=== PATIENT | male | born 1955 | race African-American/Black ===

== ENCOUNTER 2016-11-06 05:48 | Day surgery (SDC) ==
[2016-11-06] MEDS ORDERED: PEPCID ONE (06:06)
[2016-11-06] MEDS ORDERED: REGLAN ONE (06:06)
[2016-11-06] MEDS ORDERED: LR 1,000 ML ONE (06:06)
[2016-11-06] MEDS ORDERED: KEFZOL 1 GM/D5W 50 ML ONE (06:06)
[2016-11-06] MEDS ORDERED: MARCAINE 0.25% PF/EPI 1:200,000 ONE (07:52)
[2016-11-06] MEDS ORDERED: FENTANYL ONE (08:44)
[2016-11-06] MEDS ORDERED: DIPRIVAN 1% ONE (08:44)
[2016-11-06] MEDS ORDERED: DECADRON ONE (08:47)
[2016-11-06] MEDS ORDERED: ZOFRAN ONE (08:47)
[2016-11-06] MEDS ORDERED: OFIRMEV 1000 MG/ISOTONIC SOLN 100 ML ONE (08:47)
[2016-11-06] MEDS ORDERED: XYLOCAINE-MPF 2% ONE (08:47)
[2016-11-06] MEDS ORDERED: EPHEDRINE ONE (08:47)
[2016-11-06] MEDS ORDERED: ROBINUL ONE (08:47)
[2016-11-06] MEDS ORDERED: NORCO-10 ONE (08:56)
[2016-11-06] MEDS ORDERED: ZOFRAN IV PRN (09:15)
[2016-11-06] MEDS ORDERED: ULTRAM PO PRN (09:15)
[2016-11-06 09:40] VITALS: BP 127/81
--- NOTE | 2016-11-06 11:10 | OPERATIVE NOTE ---
PROCEDURE DATE: 11/06/2016 PREOPERATIVE DIAGNOSIS: Right chest wall lipoma. POSTOPERATIVE DIAGNOSIS: Right chest wall epidermal cyst. PROCEDURE PERFORMED: Excision of right chest wall epidermal cyst. SURGEON: Kendrick Coulter MD ANESTHESIA: General. ESTIMATED BLOOD LOSS: 5 mL. COMPLICATIONS: None apparent. SPECIMENS: Cyst. FINDINGS: A 4.5 x 2.5 cm epidermal cyst. COMPLICATIONS: None apparent. TECHNIQUE: The patient was brought to the operating room and placed supine on the table. General LMA anesthesia was induced. He was prepped and draped in the usual sterile fashion. Marcaine 0.25% with epinephrine was used to anesthetize the skin incisions. An elliptical incision was made around the palpable mass over the right lateral chest. This was carried down through the dermis sharply with a 15 blade. As I continued dissection through the subcutaneous fat around the mass, it became apparent that this was an epidermal cyst. There was a small amount of fluid that leaked out. It did not appear to be infected. It was completely excised from the underlying subcutaneous fat with the knife. Cautery was used for hemostasis. The subcutaneous tissue was reapproximated with interrupted 3-0 Polysorb. The skin was closed with a running 4-0 subcuticular Monocryl and Steri-Strips. There were no apparent complications. He was awakened in stable condition and transferred to the recovery room.
== END 2016-11-06 09:45 | disposition home or self-care (01) ==
LOC: OPS 05:48
PROVIDERS: ATTEND Surgery
DX: L72.0 Epidermal cyst (principal); I10 Essential (primary) hypertension
CPT/HCPCS: 88304; J0131; J0690; J1100; J2405; J3010; J7120

== ENCOUNTER 2018-11-19 00:12 | Inpatient (IN) ==
[2018-11-19] MEDS ORDERED: MORPHINE IV ONE (01:07)
[2018-11-19 01:29] LABS: BASO# 0.01 X1000 (0.0-0.2); BASO% 0.1 % (0.0-0.8); EOS# 0.16 X1000 (0.0-0.7); EOS% 2.3 % (0.0-10.0); HEMATOCRIT 41.6 % (42.0-52.0); HEMOGLOBIN 13.4 g/dL (14.0-18.0); LYMPH# 2.31 X1000 (1.2-3.4); LYMPH% 32.7 % (20.5-51.1); MCH 27.9 PG (27-31); MCHC 32.2 g/dL (33-37); MCV 86.7 FL (81-99); MONO# 0.64 X1000 (0.11-0.59); MONO% 9.1 % (1.7-9.3); NEUT# 3.95 X1000 (1.4-6.5); NEUT% 55.8 % (42.2-75.2); PLT 251 X1000 (130-400); RDW 15.3 % (11.5-14.5); WBC 7.07 X1000 (4.8-10.8)
[2018-11-19 01:37] LABS: INR 0.95; PROTIME 13.5 Seconds (11.0-16.0)
[2018-11-19 01:38] LABS: PTT 28.6 Seconds (22.3-41.8)
[2018-11-19 02:01] LABS: ALB/GLOB RATIO 1.2; ALBUMIN 4.6 g/dL (3.5-5.0); CALCIUM 8.6 mg/dL (8.8-10.2); CREATININE 1.7 mg/dL (0.7-1.2); POTASSIUM 3.9 mmol/L (3.5-5.1); TOTAL BILIRUBIN 0.42 mg/dL (0.20-1.00); TOTAL PROTEIN 8.3 g/dL (6.3-8.3)
--- NOTE | 2018-11-19 05:33 | PROVIDER DOCUMENTATION ---
This chart was entered by Jason Lundberg Scribe, acting as scribe for Golden Sen MD. HPI-Chest Pain - General Stated Complaint: left side chest pain Time Seen by Provider: 11/19/18 00:55 Source: patient Allergies/Adverse Reactions: Patient Allergies Allergy/AdvReac Type Severity Reaction Status Date / Time tramadol Allergy Intermediate RASH Verified 10/18/18 07:34 levofloxacin [From Levaquin] AdvReac ITCHING Verified 10/18/18 07:34 Home Medications: Home Medication List Medication Instructions Recorded Confirmed Last Taken Type Amlodipine [Norvasc] 10 mg PO DAILY #0 tablet 07/26/16 11/19/18 10/18/18 Rx Aspirin 81 mg PO DAILY #0 chewtab 07/26/16 11/19/18 10/18/18 Rx Hydrocodone/APAP 10 mg/325 mg 1 each PO DAILY #0 tablet 07/26/16 11/19/18 10/18/18 Rx [Mcintyre-10] Cyclobenzaprine [Flexeril] 1 tab PO DAILY 10/18/18 11/19/18 10/18/18 History Cyclobenzaprine [Flexeril] 10 mg PO TID #20 tab 10/18/18 11/19/18 Unknown Rx Nitrofurantoin Monohyd/M-Cryst 100 mg PO BID #14 cap 10/18/18 11/19/18 Unknown Rx [Macrobid 100 mg Capsule] Omeprazole 1 tab PO DAILY 10/18/18 11/19/18 10/18/18 History - History of Present Illness-CP Nature of Presenting Problem: Pt is a 63 y/o F presents to the ED with chest pain that began around 5:30 pm and is constant. Pt reports he was diaphoretic with the pain. He reports a hx of a OR within a couple months ago with no stents at that time. Location: reports: substernal Chest Pain Radiation: reports: no radiation Quality of Pain: reports: aching Severity in ED: moderate Onset/Duration: this evening Timing: still present Context/Activities at Onset: reports: none Modifying Factors: improves with: nothing Associated Symptoms: reports: diaphoresis. denies: dizziness, nausea, shortness of breath, vomiting Nitro Today/Relief: no nitro taken today Aspirin Treatment Today: 325 mg x 1, provided by EMS Similar Symptoms Previously?: Yes Recently Seen Here or By Another Healthcare Provider: No Review of Systems - Adult - REVIEW OF SYSTEMS - ADULT Constitutional: denies: chills, fever Eyes: reports: no symptoms reported Ears, Nose, Mouth & Throat: reports: no symptoms reported Cardiovascular: reports: chest pain. denies: edema, palpitations Respiratory: denies: cough, shortness of breath Gastrointestinal: denies: abdominal pain, nausea, vomiting Genitourinary: reports: no symptoms reported Musculoskeletal: reports: no symptoms reported Integumentary: reports: no symptoms reported Neurological: reports: no symptoms reported Psychiatric: reports: no symptoms reported Endocrine: reports: no symptoms reported Hematologic/Lymphatic: reports: no symptoms reported Allergic/Immunologic: reports: no symptoms reported All Other Systems: Reviewed and Negative Past History - Adult - PAST MEDICAL HISTORY-ADULT Review of Records: reports: Old Records Reviewed, Nursing Assessment Review, Medications Reviewed Major Childhood Illnesses: reports: denies history Cardiovascular: reports: CAD, HTN, OR (X 3 , NO STINT OR CABG) Respiratory: reports: denies history Gastrointestinal: reports: GERD Obstetrical/Gynecological: reports: denies history Genitourinary: reports: denies history Musculoskeletal: reports: denies history Neurological: reports: denies history Endocrine/Immune: reports: denies history Other Conditions: reports: denies history - PRIOR SURGERIES/PROCEDURES Surgical/Procedure History: reports: none - PRIOR HOSPITALIZATIONS Prior Hospitalizations: reports: none - IMMUNIZATION STATUS Childhood Immunizations: See Nurse Assessment Flu Vaccine: See Nurse Assessment - FAMILY HISTORY Family History: reviewed, not pertinent - SOCIAL HISTORY Smoking: non-smoker Living Situation: family Physical Exam-General - PHYSICAL EXAM-ADULT Initial Vital Signs Reviewed: Yes - CONSTITUTIONAL General Appearance: appears well, alert, no apparent distress - EYES Eyes: PERRL/EOMI, pink conjunctivae - HEAD, EARS, NOSE, MOUTH & THROAT HENMT: moist mucous membranes, normal ENT inspection, pharynx normal - NECK Neck: non-tender, full range of motion, supple, normal inspection - RESPIRATORY Respiratory: lungs clear, normal breath sounds, no pleuratic chest pain, no respiratory distress, no accessory muscle use - CARDIOVASCULAR Cardiovascular: normal peripheral pulses, regular rate, rhythm - GASTROINTESTINAL (ABDOMEN) Abdominal Exam: normal bowel sounds, non tender, soft - MUSCULOSKELETAL Back Exam: normal inspection, no CVA tenderness, no vertebral tenderness Extremity: normal range of motion, non-tender, normal gait, normal inspection - SKIN Integumentary: normal color, normal turgor, warm/dry - NEUROLOGIC Neurologic: grossly normal, no motor/sensory deficits - PSYCHIATRIC Psych/Mental Status: normal mood/affect, normal thought content, normal thought process, oriented x 3 Progress - PLAN OF CARE/RESULTS Progress/Plan/Lab Results: Vital Signs - 8 hr 11/19/18 01:00 11/19/18 01:03 11/19/18 01:10 Temperature Pulse Rate 84 75 68 Respiratory Rate 17 21 10 L Blood Pressure 149/87 O2 Sat by Pulse Oximetry 95 95 11/19/18 01:16 11/19/18 01:20 11/19/18 01:30 Temperature 98.7 F Pulse Rate 66 63 93 H Respiratory Rate 14 11 L 13 Blood Pressure 149/87 O2 Sat by Pulse Oximetry 98 99 98 11/19/18 01:40 11/19/18 01:50 11/19/18 02:00 Temperature Pulse Rate 67 87 72 Respiratory Rate 7 L 12 10 L Blood Pressure O2 Sat by Pulse Oximetry 98 99 97 11/19/18 02:10 11/19/18 02:20 11/19/18 02:30 Temperature Pulse Rate 61 74 62 Respiratory Rate 17 16 15 Blood Pressure O2 Sat by Pulse Oximetry 96 97 98 11/19/18 02:40 11/19/18 02:50 11/19/18 03:00 Temperature Pulse Rate 60 66 70 Respiratory Rate 13 11 L 12 Blood Pressure O2 Sat by Pulse Oximetry 97 97 96 11/19/18 03:10 11/19/18 03:17 11/19/18 03:20 Temperature Pulse Rate 84 67 69 Respiratory Rate 12 9 L 6 L Blood Pressure 149/87 O2 Sat by Pulse Oximetry 99 98 98 11/19/18 03:30 Temperature Pulse Rate 73 Respiratory Rate 12 Blood Pressure O2 Sat by Pulse Oximetry 98 Laboratory Results - last 24 hr 11/19/18 11/19/18 11/19/18 01:11 01:11 01:11 WBC 7.07 RBC 4.80 Hgb 13.4 L Hct 41.6 L MCV 86.7 MCH 27.9 MCHC 32.2 L RDW Std Deviation 15.3 H Plt Count 251 MPV 10.0 Immature Gran % (Auto) 0.0 Neut % (Auto) 55.8 Lymph % (Auto) 32.7 [place] % (Auto) 9.1 Eos % (Auto) 2.3 Baso % (Auto) 0.1 Immature Gran # (Auto) 0.00 Neut # (Auto) 3.95 Lymph # (Auto) 2.31 [place] # (Auto) 0.64 H Eos # (Auto) 0.16 Baso # (Auto) 0.01 PT INR PTT (Actin FS) Sodium 146 H Potassium 3.9 Chloride 105 Carbon Dioxide 33 Anion Gap 8 BUN 21 Creatinine 1.7 H Estimated GFR/1.73 m2 50 BUN/Creatinine Ratio 12 Glucose 86 Calculated Osmolality 293 Calcium 8.6 L Total Bilirubin 0.42 AST 63 H ALT 29 Alkaline Phosphatase 71 Troponin T Bms-H-Hgflkpjtxle Pept 83 Total Protein 8.3 Albumin 4.6 Globulin 3.7 Albumin/Globulin Ratio 1.2 11/19/18 11/19/18 01:11 01:11 WBC RBC Hgb Hct MCV MCH MCHC RDW Std Deviation Plt Count MPV Immature Gran % (Auto) Neut % (Auto) Lymph % (Auto) [place] % (Auto) Eos % (Auto) Baso % (Auto) Immature Gran # (Auto) Neut # (Auto) Lymph # (Auto) [place] # (Auto) Eos # (Auto) Baso # (Auto) PT 13.5 INR 0.95 PTT (Actin FS) 28.6 Sodium Potassium Chloride Carbon Dioxide Anion Gap BUN Creatinine Estimated GFR/1.73 m2 BUN/Creatinine Ratio Glucose Calculated Osmolality Calcium Total Bilirubin AST ALT Alkaline Phosphatase Troponin T < 0.010 [id number]-M-[id number] Pept Total Protein Albumin Globulin Albumin/Globulin Ratio Orders Category Date Time Status Nursing- Obtain EKG ONCE Care 11/19/18 00:17 Active cxr [CHEST-1 VIEW] [RAD] Stat Exams 11/19/18 01:06 Taken CBC WITH ELECTRONIC DIFF [HEME] Stat Lab 11/19/18 01:11 Completed COMPREHENSIVE METABOLIC PANEL [CHEM] Stat Lab 11/19/18 01:11 Completed PRO B-NATRIURETIC PEPTIDE Stat Lab 11/19/18 01:11 Completed PROTIME WITH INR [COAG] Stat Lab 11/19/18 01:11 Completed PTT [COAG] Stat Lab 11/19/18 01:11 Completed TROPONIN T Stat Lab 11/19/18 01:11 Completed Morphine Med 11/19/18 01:07 Discontinued 4 mg IV NOW ONE EKG [EKG] Stat Ther 11/19/18 00:17 Ordered Result Diagrams: 11/19/18 01:11 11/19/18 01:11 - EKG 1 Time of EKG reading by physician:: 00:29 EKG Read and Signed by:: Golden Sen EKG Interpretation (*Must complete 3 of following elements*): Abnormal Rate: 74 Rhythm: Sinus with occasional PVC's QRS: LVH Comments: Anteroseptal infarct, age undetermined Departure - Departure Date of Disposition Decision: 11/19/18 Time of Disposition Decision: 05:33 DIAGNOSIS: Chest pain Qualifiers: Chest pain type: unspecified Qualified Code(s): R07.9 - Chest pain, unspecified Disposition: ADMITTED INPATIENT 09 Certified Medical Emergency: Emergent Condition: Stable Referrals and Follow-Ups: Carter Serra MD [Primary Care Provider] - - Critical Care Note This patient required my direct & personal management of CC.: No Attestation - Physician/ MARE Attestation Patient care was provided by Advanced Practice Provider:: No The physician spent face to face time with patient:: Yes Advanced Practice Provider documentation review:: Supervising physician onsite and consulted in the evaluation and care of this patient. The physician did have a face to face encounter with the patient. This chart was documented by the indicated scribe, (Jason Lundberg Scribe) and accurately reflects the services I performed and decisions made by me, Golden Sen MD, as attested by the provider's signature.
[2018-11-19] MEDS ORDERED: NS 1,000 ML IV ONE (06:05)
[2018-11-19] MEDS ORDERED: NITROGLYCERIN TOP ONE (06:05)
[2018-11-19] MEDS ORDERED: LIPITOR PO ONE (06:09)
[2018-11-19] MEDS ORDERED: ZOFRAN IV PRN (06:09)
[2018-11-19] MEDS ORDERED: TYLENOL PO PRN (06:09)
[2018-11-19] MEDS ORDERED: MORPHINE IV PRN ×2 (06:09→19:03)
[2018-11-19] MEDS ORDERED: LOVENOX SUBQ SCH (06:09)
--- NOTE | 2018-11-19 06:23 | Diag Imaging Result Doc PS360 ---
CHEST-1 VIEW - 11/19/2018 INDICATION: chest pain COMPARISON: 08/22/2018 FINDINGS: The lungs are normally expanded and clear. Heart size and mediastinal contours are normal. No pneumothorax or pleural effusion. IMPRESSION: Negative exam. Electronically signed by Jericho Sparks 11/19/2018 6:20 AM
[2018-11-19] MEDS ORDERED: PRILOSEC PO SCH (07:00)
[2018-11-19 07:04] LABS: AGAP 14; BUN 20 mg/dL (8-22); CALCIUM 8.2 mg/dL (8.8-10.2); CHLORIDE 104 mmol/L (98-107); COSMO 283; CREATININE 1.4 mg/dL (0.7-1.2); ESTIMATED GFR > 60; GLUCOSE 87 mg/dL (70-104); MAGNESIUM 2.2 mg/dL (1.5-2.7); POTASSIUM 3.7 mmol/L (3.5-5.1); SODIUM 141 mmol/L (136-145); TCO2 23 mmol/L (25-35)
--- NOTE | 2018-11-19 07:28 | EKG Report ---
Test Performed on : 11/19/2018 00:29:11 AM Test Reason : chest pain Blood Pressure : / mmHG Vent. Rate : 074 BPM Atrial Rate : 074 BPM P-R Int : 204 ms QRS Dur : 088 ms QT Int : 434 ms P-R-T Axes : 067 -07 000 degrees QTc Int : 481 ms Sinus rhythm. with occasional premature ventricular complexes. Voltage criteria for left ventricular hypertrophy Anteroseptal infarct (cited on or before 09-JAN-2010) Abnormal ECG When compared with ECG of 22-AUG-2018 06:53, premature ventricular complexes. are now present Nonspecific T wave abnormality now evident in Inferior leads Nonspecific T wave abnormality has replaced inverted T waves in Lateral leads Unconfirmed Result
[2018-11-19] MEDS ORDERED: NORVASC PO SCH (09:00)
[2018-11-19] MEDS ORDERED: ASPIRIN PO SCH (09:00)
--- NOTE | 2018-11-19 09:01 | HISTORY AND PHYSICAL ---
PATIENT OF: Dr. Serra. REASON FOR ADMISSION: Chest pain yesterday night. HISTORY OF PRESENT ILLNESS: Mr. Abdirahman Villasenor is a 63-year-old male with past medical history of hypertension, prior [place] in the past. States that he was awake and developed sudden left precordial chest pain, which was nonradiating and sharp. Associated with diaphoresis but no shortness of breath, no palpitations, no nausea or vomiting. No antecedent leg swelling. No PND or orthopnea. No cough, fever, or chills. No GI or complaints. Since he has been in the hospital he has received 4 mg of morphine at about 1 a.m. and he says his pain is almost completely resolved. He says the pain has been constant. He denies any particular inciting event leading up to this pain. REVIEW OF SYSTEMS: The patient 12 systems review was done, defined per HPI. ALLERGIES: Tramadol and levofloxacin. HOME MEDICATIONS: Norvasc 10 mg daily, hydrocodone 10 mg p.r.n. He is also taking Macrobid 100 mg b.i.d., Flexeril 10 mg t.i.d. p.r.n., aspirin 81 mg daily, omeprazole 40 mg daily. FAMILY HISTORY: There is no report of any heart disease or diabetes in first-degree relatives. SOCIAL HISTORY: Lives with his girlfriend. Does not smoke, drink, or use drugs. PAST SURGICAL HISTORY: Nil. PAST MEDICAL HISTORY: Notable for hypertension and reflux disease, and he also says he has had a stress test in the past, but they had to stop it because it significantly elevated his blood pressure. LAB WORK: White count 7000, hemoglobin and hematocrit 13 and 41, platelets 251. Sodium is 146, BUN is 21, creatinine 1.7, baseline is usually 1.5. First set of troponin is negative. AST 60, ALT 29. PTT is normal. Chest film is essentially unremarkable. EKG sinus rhythm with occasional PVC and LVH, possible Q waves in V1, V2. PHYSICAL EXAMINATION: VITAL SIGNS: Blood pressure is 149/87, heart rate 72, respirations 12, temperature 98.7, 98% on room air. GENERAL: He is a middle-aged -[place] male not in acute distress. He is A and O x3. Normal mood and affect. HEAD: Normocephalic, atraumatic. EYES: PERRLA. EOMI. He is anicteric, not pale. ENT: Oropharynx exam is grossly normal. NECK: Supple. No JVD, carotid bruit, or thyromegaly. CHEST: Clear to auscultation with good air entry in both lung mauricio. CARDIOVASCULAR: First and second heart sounds heard. No gallops, murmurs, rubs. Rhythm is regular. ABDOMEN: Full, soft, nontender. No mass or organomegaly. Bowel sounds are normal. RECTAL: Exam is deferred at this time. EXTREMITIES: The patient has good distal pulses in all extremities, symmetrical, regular. No edema, clubbing, or peripheral cyanosis. NEUROLOGIC: No focal deficits. SKIN: Intact with no breakdown, lesions or erythema. MUSCULAR: Grossly normal. ASSESSMENT: 1. Chest pain syndrome in patient with coronary artery disease. The patient will be kept n.p.o. I anticipate that since the patient has not any angiogram in the done in the past and he says his pain is identical to his myocardial infarction and says he tolerate a stress test, I think it would be prudent just a diagnostic catheterization to evaluate his coronary anatomy. Will stop his stains, aspirin. Will defer to Dr. Williamson, who is personnel counselor for Cardiology to determine if he wants to proceed the Lovenox versus heparin. 2. High blood pressure. Will continue the patient's Norvasc as outlined before. 3. Reflux disease. Continue with omeprazole but at a lower dose due to patient's renal function. 4. Chronic kidney disease stage 3. Will hydrate patient. His creatinine is 1.7, baseline usually 1.5, and fluids will also be given. IV normal saline will also be given in anticipation for possible cardiac catheterization since he will be exposed to contrast. cc: Henri Osorio MD
--- NOTE | 2018-11-19 10:42 | EKG Report ---
Test Performed on : 11/19/2018 10:31:03 AM Test Reason : FOllow up EKG for new ST T changes Blood Pressure : / mmHG Vent. Rate : 060 BPM Atrial Rate : 060 BPM P-R Int : 210 ms QRS Dur : 102 ms QT Int : 460 ms P-R-T Axes : 065 011 016 degrees QTc Int : 460 ms Sinus rhythm. with 1st degree AV block. with occasional premature ventricular complexes. Moderate voltage criteria for LVH, may be normal variant Septal infarct (cited on or before 09-JAN-2010) Abnormal ECG When compared with ECG of 19-NOV-2018 00:29, (Unconfirmed) No significant change was found Unconfirmed Result
--- NOTE | 2018-11-19 12:48 | CARDIOLOGY CONSULTATION ---
DATE: 11/19/2018 CHIEF COMPLAINT. ON PRESENTATION: Chest pain. HISTORY OF PRESENT ILLNESS: Mr. Villasenor is a 63-year-old black male with a history of hypertension. He presented for complaints of chest discomfort that are occurring in the left mid chest area described as a soreness. There is a component of the discomfort that improves with sitting up and worsens with lying back. He denies any provocation with exertion or cough. He has had some diaphoresis and thinks he may have had some fevers. Again, no exertional component. The patient reports a history of a heart attack and says it was treated in [facility] around 1 month ago. However, the patient has no record of this and was seen in the ER and released. He did not have an elevated troponin at that time. PAST MEDICAL HISTORY: Significant for: 1. Hypertension. 2. Hyperlipidemia. 3. Chronic kidney disease. 4. The patient carries a possible history of coronary disease. However, there is no documentation of it in Dr. Aguilar's note. There was a questionable CT in 1999 but again, we do not have any objective data to support this. SOCIAL HISTORY: He does not smoke nor does he use any alcohol or illicit drugs. FAMILY HISTORY: No early history of heart disease in his first-degree relatives. REVIEW OF SYSTEMS: A 10 system review of systems is negative except for those mentioned in HPI. PHYSICAL EXAMINATION: Vital signs: The patient is afebrile. His heart rate is anywhere from the 60s to 80s primarily. His most recent blood pressure is 130/96. His presenting blood pressure was 149/87. General: He is in no acute distress. HEENT: Oropharynx is moist. He has poor dentition. His eye examination is pink conjunctivae, white sclerae. Neck: No obvious thyromegaly or thyroid tenderness. Cardiovascular: He sounds to be in a regular rate and rhythm. I do not hear any obvious murmurs. He has no S3. He has no lower extremity edema. He has no carotid bruits. Chest: Sounds clear bilaterally. There is no increased work of breathing. He has no intensification of the pain with palpation of his chest. Abdomen: Soft, nontender, nondistended. He has no obvious organomegaly. Skin: Warm and dry throughout without any rashes. Neurological: He is moving all extremities well. He has no lateralizing deficits. Psychiatric: He is alert, oriented, pleasant. He has a normal mood and affect. PERTINENT DATA: He had an EKG on the just after midnight demonstrating sinus rhythm, suggestion of left ventricular hypertrophy. PVC was identified. No acute evidence of ischemic changes. His subsequent EKG occurring at 10:30 this morning, again sinus rhythm. PVC was identified. No acute ischemic changes. Compared to an EKG that he had done in August, it does not appear significantly changed. His chest x-ray demonstrates no evidence of significant abnormalities. LABORATORY DATA: Shows a white count of 7, his hematocrit is 41, his platelet count is 251,000. His sodium is 141, potassium 3.7, his BUN is 20 with a creatinine of 1.4. In October 2016 and December 2017, he had creatinines of 1.5 and 1.6 respectively. His troponin is negative times multiple sets. His HDL is 76, his LDL is 102. ASSESSMENT: Mr. Villasenor is a 63-year-old gentleman who presented with chest discomfort that is atypical in nature. PLAN: We will pursue myocardial perfusion imaging as well as an echocardiogram. The patient reports a history of a myocardial infarction recently, handled here at [facility]. However, I see nothing other than the ER visits in which he was treated and released. His last evaluation in the ER was October 18 and he was seen for back pain at that time. We will follow up with the nuclear perfusion scan. If this is unremarkable, he can be discharged home to follow up with his primary care physician. cc: Arnold Klein MD
--- NOTE | 2018-11-19 15:12 | PROGRESS NOTE ---
DATE: 11/19/2018 INTERVAL HISTORY: Mr. Villasenor was admitted for atypical chest pain that happens in precordial region, which was constant, sharp in nature, getting worse on lying down flat on bed, which has been lasting for a few hours. He was seen by Cardiology. His EKG and troponins have been unremarkable except left ventricular hypertrophy. He is about to undergo stress test tomorrow. Currently he is chest pain free. He denies palpitation or shortness of breath. VITAL SIGNS: Temperature of 98.4 degrees, pulse of 82, respiratory rate 14, saturating 98% on room air. PHYSICAL EXAMINATION: General: Does not appear in any acute distress. He has squint of his eyes. Oral cavity moist. Lungs: Air entry bilaterally equal. No wheeze, rhonchi, crackles. Cardiovascular: S1, S2 normal. No murmur or gallop. Abdomen: Soft, nontender. No lower extremity edema. No jugular venous distention. LABORATORY DATA: Suggestive of acceptable range of hemoglobin, hematocrit, platelet count. Normal coagulation. Chronic kidney disease stage 3 with creatinine of 1.4. ASSESSMENT AND PLAN: 1. Atypical chest pain. The patient would likely undergo nuclear medicine stress test. 2. Essential hypertension. We will resume patient's amlodipine tomorrow. 3. Gastroesophageal reflux disease. Considering that the patient's symptoms get worse on lying down, could suggest possible esophageal or gastric reflux etiology. I will start patient on omeprazole starting tomorrow. 4. Deep venous thrombosis prophylaxis. Enoxaparin subcutaneous. 5. Chronic kidney disease stage 3. Currently at baseline. 6. Disposition. Patient will be transferred to medical floor once a bed becomes available and will undergo stress test tomorrow. cc: Javier Tai MD
[2018-11-19] MEDS ORDERED: NITROGLYCERIN TOP PRN (17:29)
[2018-11-19] MEDS ORDERED: MAALOX PLUS LIQUID PO ONE (19:24)
--- NOTE | 2018-11-19 23:01 | ECHO REPORT ---
ORDER DATE: 11/19/2018 MEASUREMENTS: Left ventricular end-diastolic diameter 4.7, septal thickness 1.0, posterior wall thickness 0.9. Aortic root 3.3, left atrium 3.4. SUMMARY: 1. Adequate quality study. 2. Aortic valve is trileaflet and opens normally on 2-dimensional images. Peak gradient across the valve is less than 10 mmHg. Mitral, tricuspid, and pulmonic valves are without evidence of structural abnormality. There is very mild mitral regurgitation and trace tricuspid regurgitation. Estimated systolic PA pressure by Doppler is 30 mmHg. The aortic root is normal in size. 3. Normal left ventricular dimensions suggested. Estimated left ventricular ejection fraction is approximately 45% in the setting of mild global hypokinesis. Left atrium, right atrium, right ventricle are normal in size with grossly preserved right ventricular systolic function. 4. No pericardial effusion. 5. Appearance of inferior vena cava suggests normal central venous pressure. cc: MD Henri Gamino MD
[2018-11-20] MEDS ORDERED: LEXISCAN ONE (08:26)
[2018-11-20] MEDS ORDERED: NORCO-10 PO SCH (09:00)
[2018-11-20] MEDS ORDERED: FLEXERIL PO SCH (09:00)
[2018-11-20] MEDS ORDERED: PRILOSEC PO SCH (09:00)
[2018-11-20] MEDS ORDERED: ASPIRIN PO SCH (09:00)
[2018-11-20] MEDS ORDERED: NORVASC PO SCH (11:15)
--- NOTE | 2018-11-20 11:27 | PROGRESS NOTE ---
DATE: 11/20/2018 INTERVAL HISTORY: Echocardiogram suggested ejection fraction of 45%. The patient did have episode of chest pain yesterday, which was constant in the epigastric and precordial regions for which I had ordered nitroglycerin paste. This did not help with his pain, and so intravenous morphine was ordered and his pain had resolved in the morning time. Since he has not had any pain episodes, he just completed his nuclear medicine stress test. OBJECTIVE: Vital signs: Currently temperature 97.9 degrees, pulse 69, respiratory rate 15, blood pressure 143/96, saturating 100% on room air. General: The patient denies any more chest pain, shortness of breath, or palpitation. I discussed with him about his echocardiogram findings and the fact that we are awaiting Cardiology recommendations. HEENT: Oral cavity moist. Lungs: Air entry bilaterally equal. No wheeze, rhonchi, or crackles. Cardiovascular: S1, S2 normal. No murmur, rub, gallop. Abdomen: Soft, nontender. Extremities: No lower extremity edema. Neck: No jugular venous distention. Neurological: He is alert, oriented x3. LABORATORY DATA: Suggestive of BMP with elevated creatinine which is his chronic issue. Potassium and magnesium are in acceptable range. Troponins negative so far. ASSESSMENT AND PLAN: 1. Atypical chest pain. Follow up nuclear medicine stress test. Continue patient on daily aspirin. His lipid panel suggested his LDL was close to 100 and total cholesterol less than 200. Differentials for his atypical chest pain could include coronary artery disease, gastroesophageal reflux disease, anxiety, musculoskeletal or esophageal disorder. Continue him on omeprazole daily and cyclobenzaprine daily. 2. Essential hypertension. I will resume his amlodipine today. 3. Gastroesophageal reflux disease. Considering that the patient's symptoms get worse on lying down when he experiences chest pain, this atypical chest pain could be of esophageal or gastric reflux etiology. Continue patient on omeprazole. 4. Deep vein thrombosis (DVT) prophylaxis. Enoxaparin subcutaneous. 5. Chronic kidney disease, stage 3. Currently at baseline. 6. Acute congestive heart failure with echocardiogram showing ejection fraction of 45% with global hypokinesia. I will appreciate Cardiology recommendation if he would need ischemic workup further based on his nuclear medicine stress test. Plan of care were discussed with the patient and his at bedside who is a surrogate decision maker. All of their questions have been answered. DISPOSITION: Patient will be transferred out of [facility] to routine medical floor. If his nuclear medicine stress test is okay, and no further inpatient cardiac workup is warranted, then he will be discharged home in the next 24 hours. cc: Javier Tai MD
--- NOTE | 2018-11-20 14:59 | CARDIOLOGY PROGRESS NOTE ---
DATE: 11/20/2018 SUBJECTIVE: He is not having any chest pain or shortness of breath. OBJECTIVE: Vital Signs: He is afebrile, heart rate is 70, his blood pressure is 141/82. Systolics have been very erratic, being anywhere from the 90s to the 140s. General: He is in no acute distress. Cardiovascular: He sounds to be in a regular rate and rhythm. I do not hear any obvious murmurs. He has no S3. He has no lower extremity edema. Chest: Clear bilaterally. No increased work of breathing. Abdomen: Soft, nontender. PERTINENT DATA: He has no new laboratory data from today. Nuclear scan is currently pending. ASSESSMENT: Mr. Villasenor is a 63-year-old gentleman who presented with chest discomfort yesterday. PLAN: His echocardiogram demonstrated an EF of 45% with mild global hypokinesis. We are pending his nuclear scan for further recommendations. He currently continues on his home medications, which we will continue on for the time being. cc: Arnold Klein MD
--- NOTE | 2018-11-20 15:17 | Diag Imaging Result Document ---
PROCEDURE NAME: MYOCARDIAL PERF SCAN, STR/REST - 11/20/2018 PROCEDURE: Myocardial perfusion scan. INDICATION: Chest pain. PROCEDURES PERFORMED: 1. Lexiscan stress. 2. One-day stress/rest myocardial perfusion imaging. PROCEDURE IN DETAIL: Mr. Villasenor was brought to the nuclear laboratory and had a resting study with injection of 12.8 mCi of technetium-99m sestamibi with usual imaging protocol utilized. He subsequently was brought back and had a Lexiscan stress. At peak stress, was injected with 37.4 mCi of technetium-99m sestamibi with usual imaging protocol utilized. FINDINGS: LEXISCAN STRESS RESULTS: 1. Baseline EKG shows sinus rhythm. The patient has evidence for left ventricular hypertrophy, as well as anterior septal Q-waves. 2. Lexiscan stress did not demonstrate any clear evidence of ischemic-related EKG changes or significant arrhythmias. The patient had no PVCs during the course of the study. PERFUSION IMAGING RESULTS: 1. No evidence of abnormal extracardiac uptake. 2. TID ratio 0.96. 3. Perfusion imaging demonstrates what appears to be normal uptake of radiotracer throughout the myocardial segments. 4. There is a normal ejection fraction of 53% on myometrics with an ejection fraction of 49% on ECT tool box. The end-diastolic volume on myometrics is 103 with an end-systolic volume of 49. There appears to be wall motion suggestive of a bundle branch block of the septum. It is noted to be thickening in the septum on review of the images. In short, there does not appear to be any clear evidence of segmental wall motion abnormalities consistent with infarct or ischemic changes. cc: Arnold Klein MD
[2018-11-20 21:13] VITALS: BP 131/76
--- NOTE | 2018-11-20 23:38 | DISCHARGE SUMMARY ---
ADMISSION DATE: 11/19/2018 DISCHARGE DATE: 11/20/2018 DISCHARGE DIAGNOSES: 1. Atypical chest pain. 2. Essential hypertension. 3. Gastroesophageal reflux disease. 4. Chronic kidney disease stage 3. 5. Congestive systolic heart failure, with echocardiogram showing ejection fraction of 45%. CONSULTATIONS: During hospitalization, channel lip wetter Dr. Arnold Klein. DISCHARGE MEDICATIONS: Cyclobenzaprine 10 mg p.o. daily; omeprazole 40 mg daily; aspirin 81 mg daily; Liberty 10 one tablet p.o. daily; metoprolol succinate 25 mg daily. DIAGNOSTIC DATA: Investigations during hospitalization, echocardiogram on 11/19 had detected systolic pulmonary artery pressure of 30 mmHg. Estimated left ventricular ejection fraction of 45% in the setting of mild global hypokinesis, with grossly preserved right ventricular function. Myocardial perfusion scanning on 11/20/2018 had detected there does not appear to be any clear evidence of segmental wall motion abnormalities consistent with infarct or ischemic changes. Imaging during hospital admission, chest x-ray on admission had suggested negative exam. There was no pneumothorax or pneumonia. PHYSICAL EXAMINATION: At the time of discharge, temperature 98 degrees, pulse 59, respiratory rate 18, blood pressure 125/59, saturating 98% on room air. On physical examination the patient does not appear in any acute distress. Oral cavity moist. Air entry bilaterally equal. No wheeze, rhonchi or crackles. S1, S2 normal. No murmur or gallop. No local chest tenderness on palpation. Abdomen is soft, nontender. No lower extremity edema. Neurologic: Alert and oriented x3. LABORATORY DATA: Significant labs during hospital admission, his hemoglobin was 13.4, WBC 7, platelet count 251,000. His electrolytes were largely within normal/acceptable range except creatinine of 1.4, though BUN was 20 and GFR was more than 60. His troponins were negative. Lipid panel had suggested LDL of 102, total cholesterol of 190. HOSPITAL COURSE: Mr. Villasenor is a 63-year-old man who presented with chief complaint of chest pain which was sudden onset, left precordial without radiation, and it was sharp in character. It was associated with diaphoresis without any shortness of breath or palpitations. In the hospital he was given intravenous morphine, following which his chest pain had resolved. His EKG on admission had suggested sinus rhythm with occasional premature ventricular contractions. There was some voltage criteria for left ventricular hypertrophy. There was presence of Q waves in lead V1 and V2. He underwent echocardiogram nuclear medicine stress testing which was unremarkable. It was thought that his chest pain episode could be in the setting of anxiety and stress or gastroesophageal reflux disease. He was started on metoprolol extended-release, and was discharged home. He was extensively counseled about following up with his regular doctor and channel lip wetter within 10 days of discharge. He was counseled about discussing with the regular doctor about anxiety management as well as need for further GI workup if he continues to have chest pain. He was also counseled about following with channel lip wetter and discuss about further care. Plan of care was discussed with him and the patient's , who is the surrogate decision-maker, who was at bedside. All of the following information was provided to them. All of their questions have been answered satisfactorily. Less than 30 minutes was spent in discharging the patient. cc: Javier Tai MD
[2018-11-21] MEDS ORDERED: NORVASC PO SCH (09:00)
[2018-11-21] MEDS ORDERED: TOPROL XL PO SCH (09:00)
== END 2018-11-20 21:40 | disposition home or self-care (01) | DRG 313 ==
LOC: SUPCPDRO → ED 00:12 → SUATTDRO 07:53 → EDIPHOLD 07:53 → 3S 20:13 → 3N 11-20 13:15
PROVIDERS: ATTEND Internal Medicine
CPT/HCPCS: 71010; 71045; 78452; 80048; 80053; 80061; 83721; 83735; 83880; 84484; 85025; 85610; 85730; 93005; 93017; 93306; 96372; 96374; 96376; 99285; A9270; A9500; J1650; J2270; J2785